=== PATIENT | male | born 1955 | race Caucasian/White ===

== ENCOUNTER 2024-09-08 08:34 | Outpatient (CLI) | payer MEDICARE ==
[~2024-09-08 08:34] MED LIST: AMIT25TA10 PO; APIX5TAB3 PO; ASPI81TA52 PO; ATOR80TA PO; CARV25TA PO; DRON400T7 PO; FURO-150 PO; LORA0.5T PO; LOSA-416 PO; METF500T3 PO; SPIR25TA PO
--- NOTE | 2024-09-08 10:09 | RADIOLOGY REPORT ---
EXAM: CT CT LUMBAR SPINE HISTORY: LOW BACK PAIN,SPONDYLOSIS W/O MYELOPATHY OR RADICULOPATHY, LUMBAR REGION COMPARISON: None CTDIvol 34.79 mGy, DLP 1135.1 mGy*cm. TECHNIQUE: Multiple axial CT images of the spine were obtained using bone algorithm. Axial and castellanos l reformatting was done. Bone and soft tissue windows were reviewed. FINDINGS: No evidence of definite acute fracture, spinal dislocation, or significant appearing acute subluxatio n is seen. Advanced multilevel degenerative changes of the spine with multilevel prominent degenerative disc ost eophyte hypertrophy and facet hypertrophy. Moderate to severe canal and foraminal stenosis at L4-L5, L3-L4, L2-L3 and L1-L2. IMPRESSION: No definite CT evidence of acute fracture or dislocation of the bony lumbar spine.
== END 2024-09-08 23:59 | disposition home or self-care (01) ==
LOC: RAD 08:34
PROVIDERS: ATTEND Pediatrics Sports Medicine
DX: M51.379 Other intervertebral disc degeneration, lumbosacral region without mention of lumbar back pain or lower extremity pain (principal); M54.50 Low back pain, unspecified; M47.816 Spondylosis without myelopathy or radiculopathy, lumbar region; M25.78 Osteophyte, vertebrae; M48.061 Spinal stenosis, lumbar region without neurogenic claudication; Z98.890 Other specified postprocedural states; Z79.899 Other long term (current) drug therapy
CPT/HCPCS: 72131